=== PATIENT | female | born 1960 ===

== ENCOUNTER 2019-05-18 19:10 | Observation (INO) ==
[2019-05-18] MEDS ORDERED: NS 1000 ML 1,000 ML IV ONE ×2 (20:11→21:35)
--- NOTE | 2019-05-18 20:18 | DR.VAGB ---
HPI Time Seen Time Seen by Provider: 05/18/19 20:10 PCP Primary Care Physician: DEMETRIS HPI Comment HPI Comment: PATIENT IS 59YR OLD WHITE FEMALE IN ER WITH SUDDEN ONSET OF VAGINAL BLEEDING. STARTED 17:00PM TODAY. BLEEDING IS SEVERE WITH BLOOD CLOTTS. DENIES PAIN. FEEL SOMETHING IN VAGINAL AREA WHEN SHE WIPES. DENIES TRAUMA. HAD EPISODE SIMILAR TO THIS THAT WAS MILD AND TOLD WAS DUE TO UTERINE FIBROID. PATIENT IS POST MENOPAUSAL. Complaint Chief Complaint Doctors Comments: VAGINAL BLEEDING TIMES FEW HOURS. Reviewed Nurses Notes Review: Yes Source History Provided: Patient Mode of Arrival Mode of Arrival: Ambulatory Timing Onset of Chief Complaint: 05/18/19 Duration Duration: Constant Quality Quality: Bright red and Clotted Severity Pain: None Context Onset: Spontaneous control: None Associated signs and symptoms Associated signs and symptoms: Faintness PMH PMH Past Medical History: Yes Past Medical History: Hypertension Past Surgical History: No Family History History of Family Medical Conditions: No Social History Alcohol Use: None Do you use any recreational Drugs:: No Lives Where: Home infectious screening Have you traveled outside the country in the last 6 months?: No ROS Review of Systems Constitutional: No Symptoms Reported, See HPI, Weakness and Fatigue; negative Fever Eyes: No Symptoms Reported and See HPI; negative Blurred Vision and Diplopia ENTM: No Symptoms Reported and See HPI; negative Ear Pain, Nose Discharge, Nose Congestion and Throat Pain Respiratoy: No Symptoms Reported and See HPI; negative Non-Productive Cough, Short of Breath and Wheezing Cardiovascular: No Symptoms Reported and See HPI; negative Chest Pain, Edema and Palpitations Gastrointestinal/Abdominal: No Symptoms Reported and See HPI; negative Abdominal Pain, Diarrhea, Nausea and Vomiting Genitourinary: No Symptoms Reported and See HPI; negative Dysuria, Frequency and Hematuria Neurological: See HPI, Weakness and Dizziness; negative Headache Musculoskeletal: No Symptoms Reported and See HPI Integumentary: No Symptoms Reported and See HPI; negative Change in Color, Rash and Juandice Hematologic/Lymphatic: No Symptoms Reported and See HPI; negative Anemia, Easy Bleeding, Easy Bruising and Swollen Glands Endocrine: No Symptoms Reported and See HPI; negative Increased Thirst, Increased Urine and Decreased Appetite Psychiatric: No Symptoms Reported and See HPI All Other Systems: Reviewed and Negative PE Vital Signs Vitals: Temperature 97.8 F Pulse Rate 56 Respiratory Rate 19 Blood Pressure 84/47 O2 Sat by Pulse Oximetry 91 General Limitations: No Limitations General Appearance: Alert and In No Apparent Distress Head Head Exam: Normal Inspection and Atraumatic Eyes Eye exam: Normal Appearance; negative PERRL, Scleral Icterus and Conjunctival Injection ENT ENT Exam: Normal Exam, Normal Oropharynx, Normal External Ear Exam and TM's Normal Bilaterally Neck Neck Exam: Normal Inspection and Trachea Midline; negative Tenderness and Lymphadenopathy Chest Chest Inspection: Normal Inspection and Symmetric Chest Wall Rise; negative Tenderness Respiratory Respiratory Exam: Normal Lung Sounds Bilat; negative Accessory Muscle Use, Chest Wall Tenderness and Respiratory Distress Respiratory Exam: Bilateral: Clear to Auscultation Cardiovascular Cardiovascular Exam: Regular Rate, Normal Rhythm and Normal Heart Sounds; negative Systolic Murmur and Diastolic Murmur Abdominal Exam Abdominal Exam: Normal Inspection, Normal Bowel Sounds and Soft; negative Tenderness Rectal Rectal Exam: Deferred and Normal Inspection Genitourinary External Exam: Female: Normal External Exam : Speculum Exam (Female): Vaginal Bleeding and Other (CYLINDRICAL TISSUE IN VAGINA WITH BLEEDING BRIGHT RED BLOOD AROUND IT. CERVIXNOT VISUALIZED.) : Bimanual Exam (female): Other (BLOOD AND CLOTT IN VAGINAL VAULT.); negative Uterine Tenderness Extremities Extremities Exam: Normal Inspection and Normal Capillary Refill; negative Tenderness, Edema and Calf Tenderness Back Back Exam: Normal Inspection Neurologic Neurological Exam: Alert and Oriented X3; negative Motor Sensory Deficit Skin Skin Exam: Warm, Dry, Intact and Normal Color MDM Differential diagnosis Diffenential diagnosis: Menorrhagia and Other (ABNORMAL UTERINE BLEEDING, HYPOTENSION) COURSE Treatment Treatment: SEE ORDERS. NS 1L IV BOLUS, BP IMPROVING, BLEEDING CONTINUES, Consultation Consultation Comments: DISCUSSED PATIENT WITH DR. GALLEGOS. PROVERA 10MG PO AND REPEAT H&H. SHE WILL ADMIT PATIENT. Education/Counseling Education/Counseling: Patient and Family Educated On: Diagnosis ROR Labs Reviewed Laboratory Results Reviewed?: Yes Result Diagrams: 05/19/19 00:55 05/18/19 20:34 Laboratory: WBC 14.9 X10^3/uL (3.6-10.0) H 05/18/19 20:34 RBC 3.93 X10^6/uL (3.5-5.4) 05/18/19 20:34 Hgb 11.6 g/dL (12.0-16.0) L 05/19/19 00:55 Hct 33.8 % (36.0-47.0) L 05/19/19 00:55 MCV 93.7 fL (80.0-100.0) 05/18/19:34 MCH 32.2 pg (27.0-34.0) 05/18/19: MCHC 34.4 g/dL (33.0-35.0) 05/18/19:34 RDW 13.1 % (11.6-16.5) 05/18/19:34 Plt Count 260 X10^3/uL (150.0-450.0) 05/18/19:34 MPV 9.7 fL (7.4-11.0) 05/18/19 20:34 Neut % (Auto) 68.7 % (42.0-75.0) 05/18/19: Lymph % (Auto) 21.5 % (21.0-51.0) 05/18/19:34 [place] % (Auto) 6.6 % (0.0-13.0) 05/18/19 20:34 Eos % (Auto) 1.9 % (0.9-2.9) 05/18/19:34 Baso % (Auto) 1.3 % (0.2-1.0) H 05/18/19 20:34 Neut # (Auto) 10.2 x10^3/uL (2.2-4.8) H 05/18/19 20:34 Lymph # (Auto) 3.2 X10^3/uL (1.3-2.9) H 05/18/19 20:34 [place] # (Auto) 1.0 x10^3/uL (0.3-0.8) H 05/18/19 20:34 Eos # (Auto) 0.3 x10^3/uL (0.0-0.2) H 05/18/19 20:34 Baso # (Auto) 0.2 X10^3/uL (0.0-0.1) H 05/18/19 20:34 Absolute Nucleated RBC 0.0 /100WBC 05/18/19 20:34 Sodium 138 mmol/L (136-145) 05/18/19 20:34 Corrected Sodium 140 mmol/L (136-145) 05/18/19 20:34 Potassium 3.7 mmol/L (3.5-5.1) 05/18/19 20:34 Chloride 103 mmol/L (98-107) 05/18/19 20:34 Carbon Dioxide 28.4 mmol/L (21-32) 05/18/19 20:34 BUN 14 mg/dL (7-18) 05/18/19 20:34 Creatinine 1.12 mg/dL (0.55-1.02) H 05/18/19 20:34 Est GFR (MDRD) Af Amer > 60 (>60) 05/18/19 20:34 Est GFR (MDRD) Non-Af 53 (>60) L 05/18/19 20:34 Glucose 185 mg/dL (65-99) H 05/18/19 20:34 Calcium 8.1 mg/dL (8.5-10.1) L 05/18/19 20:34 Corrected Calcium 8.7 mg/dL (8.5-10.1) 05/18/19 20:34 Total Bilirubin 0.30 mg/dL (0.2-1.0) 05/18/19 20:34 AST 21 Units/L (15-37) 05/18/19 20:34 ALT 26 Units/L (12-78) 05/18/19 20:34 Alkaline Phosphatase 77 Units/L (46-116) 05/18/19 20:34 Total Protein 6.3 g/dL (6.4-8.2) L 05/18/19 20:34 Albumin 3.2 g/dL (3.4-5.0) L 05/18/19 20:34 Globulin 3.1 g/dL (2.5-4.5) 05/18/19 20:34 Albumin/Globulin Ratio 1.0 Ratio (1.1-2.1) L 05/18/19 20:34 HCG, Qual Negative <10 mIU/mL 05/18/19 20:34 Blood Type A POSITIVE 05/18/19 20:34 Antibody Screen Negative 05/18/19 20:34 XRAY XRAY Interpreted by: Radiologist XRAY Findings: CT REPORT NOTED AND DISCUSSED WITH PATIENT. EKG Rate: 55 [place]: Normal Rhythm: SB Block: None Hypertrophy: None ST: Normal Opioid Opioid Risk Tool Age (Basil box if 16-45): No Total: 0 Total Score Risk Category: Low Risk Copyright: Shashank RATLIFF predicting aberrant behaviors Diagnosis Discharge Problem: Abnormal vaginal bleeding Hypotension Qualifiers: Hypotension type: hypotension due to hypovolemia Qualified Code(s): I95.89 - Other hypotension Instructions Forms: Excuse From Work Patient Portal
[2019-05-18] MEDS ORDERED: NS 1000 ML 1,000 ML ONE ×3 (20:25→22:32)
[2019-05-18 20:48] LABS: BASOPHILS # (AUTO) 0.2 X10^3/uL (0.0-0.1); BASOPHILS % (AUTO) 1.3 % (0.2-1.0); EOSINOPHILS # (AUTO) 0.3 x10^3/uL (0.0-0.2); EOSINOPHILS % (AUTO) 1.9 % (0.9-2.9); HEMATOCRIT 36.8 % (36.0-47.0); HEMOGLOBIN 12.7 g/dL (12.0-16.0); LYMPHOCYTES # (AUTO) 3.2 X10^3/uL (1.3-2.9); LYMPHOCYTES % (AUTO) 21.5 % (21.0-51.0); MEAN CORPUSCULAR HEMOGLOBIN 32.2 pg (27.0-34.0); MEAN CORPUSCULAR HGB CONC 34.4 g/dL (33.0-35.0); MEAN CORPUSCULAR VOLUME 93.7 fL (80.0-100.0); MEAN PLATELET VOLUME 9.7 fL (7.4-11.0); MONOCYTES % (AUTO) 6.6 % (0.0-13.0); NEUTROPHILS # (AUTO) 10.2 x10^3/uL (2.2-4.8); NEUTROPHILS % (AUTO) 68.7 % (42.0-75.0); PLATELET COUNT 260 X10^3/uL (150.0-450.0); RED BLOOD COUNT 3.93 X10^6/uL (3.5-5.4); RED CELL DISTRIBUTION WIDTH 13.1 % (11.6-16.5); WHITE BLOOD COUNT 14.9 X10^3/uL (3.6-10.0)
[2019-05-18 21:01] LABS: ALANINE AMINOTRANSFERASE 26 Units/L (12-78); ALBUMIN 3.2 g/dL (3.4-5.0); ALKALINE PHOSPHATASE 77 Units/L (46-116); ASPARTATE AMINO TRANSFERASE 21 Units/L (15-37); BLOOD UREA NITROGEN 14 mg/dL (7-18); CALCIUM 8.1 mg/dL (8.5-10.1); CARBON DIOXIDE 28.4 mmol/L (21-32); CHLORIDE 103 mmol/L (98-107); COR CA(FOR HYPOALB) 8.7 mg/dL (8.5-10.1); COR NA(FOR HYPERGLY) 140 mmol/L (136-145); CREATININE 1.12 mg/dL (0.55-1.02); SODIUM 138 mmol/L (136-145); TOTAL PROTEIN 6.3 g/dL (6.4-8.2); eGFR NON BLACK RACES 53 (>60)
[2019-05-18] MEDS ORDERED: PROVERA PO ONE (22:06)
[2019-05-18 22:38] LABS: HEMOGLOBIN 11.7 g/dL (12.0-16.0)
[2019-05-18] MEDS: NS 1000 ML 1,000 ML IV SCH (23:08)
[2019-05-19 00:33] LABS: SERUM PREGNANCY TEST, QUAL NEGATIVE <10 mIU/mL
[2019-05-19 01:02] LABS: HEMATOCRIT 33.8 % (36.0-47.0); HEMOGLOBIN 11.6 g/dL (12.0-16.0)
--- NOTE | 2019-05-19 01:21 | CT ---
HISTORYGUSHING BLOOD AND I FEEL A BIG KNOT IN MY VAGINAL CANAL. PASSING BLOOD CLOTSSTUDYABDOMEN/PELVIS W/O CONCOMPARISONNoneTECHNIQUEMultiple axial images of the abdomen and pelvis were obtained from the lung bases to the pubic symphysis without the administration of IV contrast. Dose reduction techniques including Automated Exposure Control (AEC) and adjustment of mA and kV were utilized.FINDINGSThe visualized portions of the lung bases are unremarkable. The liver, gallbladder, pancreas, spleen, and right adrenal gland are unremarkable. Left adrenal adenoma. Kidneys demonstrated unremarkable unenhanced appearance. No hydronephrosis. Urinary bladder is unremarkable. Focal area of hypoattenuation demonstrated at the lower uterine segment/cervix measures 3.3 x 2.1 cm. No suspicious adnexal mass. The stomach and small bowel are within normal limits. There is scattered colonic diverticulosis without CT evidence of diverticulitis. There is no free fluid or mesenteric or retroperitoneal adenopathy. Mild atherosclerotic calcifications with ectasia of the infrarenal abdominal aorta without aneurysm. No acute osseous findings.1. Focal area of hypoattenuation in the region of the lower uterine segment/cervix. This is not well evaluated by noncontrast CT though may reflect endocervical distention with fluid. Recommend [employer] consultation and direct visualization to exclude underlying mass. Pelvic ultrasound may also be helpful for further evaluation.2. Otherwise, no acute process of the abdomen or pelvis.3. Additional chronic, incidental findings as above.Electronically signed by: David Villafuerte (May 19, 2019 01:20:08)
[2019-05-19 03:41] LABS: BILIRUBIN,URINE NEGATIVE (NEGATIVE); BLOOD/HEMOGLOBIN,URINE 5+ (NEGATIVE); GLUCOSE, URINE NEGATIVE (NEGATIVE); KETONES,URINE 1+ (NEGATIVE); LEUKOCYTE ESTERASE ,URINE 1+ (NEGATIVE); NITRITES,URINE NEGATIVE (NEGATIVE); PROTEIN,URINE 2+ (NEGATIVE); UROBILINOGEN,URINE NORMAL (NORMAL)
[2019-05-19 03:46] LABS: APPEARANCE,URINE SLIGHTLY HAZY (CLEAR); BACTERIA,URINE TRACE /HPF (NEGATIVE); COLOR,URINE DARK YELLOW (YELLOW); MUCUS,URINE FEW /HPF (NEGATIVE); RBC,URINE TNTC /HPF (0-3); SQUAMOUS EPITHELIAL CELL,UR RARE /HPF (NEGATIVE)
[2019-05-19 03:57] VITALS: BMI 29.6
[2019-05-19 05:22] LABS: BASOPHILS # (AUTO) 0.1 X10^3/uL (0.0-0.1); BASOPHILS % (AUTO) 0.6 % (0.2-1.0); EOSINOPHILS # (AUTO) 0.1 x10^3/uL (0.0-0.2); EOSINOPHILS % (AUTO) 0.8 % (0.9-2.9); HEMATOCRIT 30.3 % (36.0-47.0); HEMOGLOBIN 10.4 g/dL (12.0-16.0); LYMPHOCYTES # (AUTO) 1.4 X10^3/uL (1.3-2.9); LYMPHOCYTES % (AUTO) 11.7 % (21.0-51.0); MEAN CORPUSCULAR HEMOGLOBIN 32.4 pg (27.0-34.0); MEAN CORPUSCULAR HGB CONC 34.4 g/dL (33.0-35.0); MEAN CORPUSCULAR VOLUME 94.2 fL (80.0-100.0); MEAN PLATELET VOLUME 9.9 fL (7.4-11.0); MONOCYTES # (AUTO) 0.5 x10^3/uL (0.3-0.8); MONOCYTES % (AUTO) 4.6 % (0.0-13.0); NEUTROPHILS # (AUTO) 9.9 x10^3/uL (2.2-4.8); NEUTROPHILS % (AUTO) 82.3 % (42.0-75.0); PLATELET COUNT 162 X10^3/uL (150.0-450.0); RED BLOOD COUNT 3.22 X10^6/uL (3.5-5.4); RED CELL DISTRIBUTION WIDTH 12.7 % (11.6-16.5)
[2019-05-19 05:40] LABS: ALANINE AMINOTRANSFERASE 21 Units/L (12-78); ALBUMIN 2.6 g/dL (3.4-5.0); ALKALINE PHOSPHATASE 63 Units/L (46-116); ASPARTATE AMINO TRANSFERASE 16 Units/L (15-37); BLOOD UREA NITROGEN 12 mg/dL (7-18); CARBON DIOXIDE 27.5 mmol/L (21-32); CHLORIDE 108 mmol/L (98-107); COR CA(FOR HYPOALB) 8.1 mg/dL (8.5-10.1); COR NA(FOR HYPERGLY) 141 mmol/L (136-145); SODIUM 140 mmol/L (136-145); TOTAL PROTEIN 5.1 g/dL (6.4-8.2); eGFR NON BLACK RACES > 60 (>60)
[2019-05-19] MEDS: NS 1000 ML 1,000 ML IV SCH (08:38)
[2019-05-19] MEDS ORDERED: PROVERA PO SCH (09:00)
[2019-05-19 11:09] LABS: HEMATOCRIT 28.9 % (36.0-47.0); HEMOGLOBIN 9.9 g/dL (12.0-16.0)
--- NOTE | 2019-05-19 13:52 | US ---
HISTORYVAGINAL BLEEDINGSTUDYPELVIC ultrasound (NON OB)COMPARISONCT from same dayTECHNIQUEMultiple transabdominal rocha scale and color flow Doppler images of the pelvis were obtained with image documentation. Doppler ultrasound of the ovaries with waveform analysis.FINDINGSUterus measures 5.0 cm in length. Region of the cervix appears prominent and cervical malignancy is not excluded. The endometrial stripe is normal in size measuring 3.1 millimeter.The right ovary measures [3.8 x 4.0 x 3.0 cm]. The left ovary is not definitely identified. No adnexal masses are seen. Normal Doppler flow in the right ovary.No free pelvic fluid.IMPRESSIONThere is mild prominence of the cervix. Cervical malignancy is not excluded. No endometrial thickening.Electronically signed by: Tonio Vo (May 19, 2019 13:51:09)
[2019-05-19 16:24] VITALS: BP 126/56
== END 2019-05-19 16:05 | disposition home or self-care (01) ==
LOC: ICU 19:13 → ER 19:13 → ICU 05-19 03:03
PROVIDERS: ADMIT Specialist; ATTEND Specialist
CPT/HCPCS: 36415; 74176; 76856; 80053; 81001; 84703; 85014; 85018; 85025; 85610; 85730; 86850; 86900; 86901; 93005; 94760; 96360; 96361; 96365; 96367; 99284; 99285; A4222; G0378; J7030